=== PATIENT | male | born 1945 | race Caucasian/White ===

== ENCOUNTER 2021-10-31 12:40 | Outpatient (CLI) | payer MEDICARE, BC ==
[~2021-10-31 12:40] MED LIST: Iopamidol 370 76% 100 ML VIAL ONE
== END 2021-10-31 12:41 | disposition home or self-care (01) ==
LOC: CT 12:40
PROVIDERS: ATTEND Internal Medicine Cardiovascular Disease
DX: I65.23 Occlusion and stenosis of bilateral carotid arteries (principal); I65.03 Occlusion and stenosis of bilateral vertebral arteries
CPT/HCPCS: 70498; 82565; Q9967